=== PATIENT | female | born 1995 | race Caucasian/White ===

== ENCOUNTER 2019-12-16 22:55 | Inpatient (IN) ==
[2019-12-16 23:21] VITALS: BMI 31.3
[2019-12-16 23:26] LABS: AMNISURE ROM TEST THERE IS A RUPTURE (NO RUPTURE)
[2019-12-16 23:27] LABS: APPEARANCE,URINE CLOUDY (CLEAR); BILIRUBIN,URINE NEGATIVE (NEGATIVE); BLOOD/HEMOGLOBIN,URINE 5+ (NEGATIVE); COLOR,URINE YELLOW (YELLOW); GLUCOSE, URINE NEGATIVE (NEGATIVE); KETONES,URINE NEGATIVE (NEGATIVE); LEUKOCYTE ESTERASE ,URINE 1+ (NEGATIVE); NITRITES,URINE NEGATIVE (NEGATIVE); PH,URINE 6.5 (5.0 - 8.0); PROTEIN,URINE 2+ (NEGATIVE); UROBILINOGEN,URINE NORMAL (NORMAL)
[2019-12-16 23:29] LABS: BACTERIA,URINE 1+ /HPF (NEGATIVE); SQUAMOUS EPITHELIAL CELL,UR MODERATE /HPF (NEGATIVE)
[2019-12-16] MEDS ORDERED: D5 1/2 NS 1000 ML 1,000 ML IV ONE (23:31)
[2019-12-16] MEDS ORDERED: D5 1/2 NS 1000 ML 1,000 ML IV SCH (23:45)
[2019-12-16] MEDS ORDERED: LR 1000 ML IV 1,000 ML IV ONE (23:47)
[2019-12-16] MEDS ORDERED: FENTANYL INJ 100 mcg ONE (23:48)
[2019-12-16] MEDS ORDERED: PITOCIN ONE (23:48)
[2019-12-16] MEDS ORDERED: D5LR 1L W PITOCIN 10 UNITS/L 10 UNITS/1,000 ML BAG IV ONE (23:48)
[2019-12-16] MEDS ORDERED: NAROPIN EPIDURAL 0.2% + FENTANYL 90MCG 60 ML EPI ONE (23:49)
[2019-12-16] MEDS ORDERED: D5 1/2 NS 1L W PITOCIN 20 UNITS/L 20 UNITS/1,000 ML BAG IV ONE (23:49)
[2019-12-17] MEDS ORDERED: NUBAIN INJ 10 ONE (00:16)
[2019-12-17 00:25] LABS: BASOPHILS % (AUTO) 0.2 % (0.2-1.0); EOSINOPHILS % (AUTO) 0.5 % (0.9-2.9); HEMATOCRIT 35.2 % (36.0-47.0); HEMOGLOBIN 12.3 g/dL (12.0-16.0); LYMPHOCYTES # (AUTO) 2.7 X10^3/uL (1.3-2.9); LYMPHOCYTES % (AUTO) 29.5 % (21.0-51.0); MEAN CORPUSCULAR HEMOGLOBIN 31.4 pg (27.0-34.0); MEAN CORPUSCULAR HGB CONC 34.9 g/dL (33.0-35.0); MEAN PLATELET VOLUME 8.7 fL (7.4-11.0); MONOCYTES # (AUTO) 0.8 x10^3/uL (0.3-0.8); MONOCYTES % (AUTO) 8.2 % (0.0-13.0); NEUTROPHILS # (AUTO) 5.7 x10^3/uL (2.2-4.8); NEUTROPHILS % (AUTO) 61.6 % (42.0-75.0); PLATELET COUNT 214 X10^3/uL (150.0-450.0); RED BLOOD COUNT 3.91 X10^6/uL (3.5-5.4); RED CELL DISTRIBUTION WIDTH 13.3 % (11.6-16.5); WHITE BLOOD COUNT 9.2 X10^3/uL (3.6-10.0)
[2019-12-17] MEDS ORDERED: D5LR 1L W PITOCIN 10 UNITS/L 10 UNITS/1,000 ML BAG IV PRN (00:25)
[2019-12-17] MEDS ORDERED: REGLAN INJ 10 MG VIAL IVP PRN (00:25)
[2019-12-17] MEDS ORDERED: PITOCIN IVP ONE (00:25)
[2019-12-17] MEDS ORDERED: PHENERGAN INJ 25 MG IM PRN ×2 (00:25→05:34)
[2019-12-17] MEDS ORDERED: NUBAIN INJ 200 MG VIAL MULTIDOSE IVP PRN (00:25)
[2019-12-17 00:32] LABS: ALANINE AMINOTRANSFERASE 14 Units/L (12-78); ALBUMIN 2.9 g/dL (3.4-5.0); ALKALINE PHOSPHATASE 130 Units/L (46-116); ASPARTATE AMINO TRANSFERASE 14 Units/L (15-37); BLOOD UREA NITROGEN 10 mg/dL (7-18); CARBON DIOXIDE 27.3 mmol/L (21-32); CHLORIDE 103 mmol/L (98-107); COR CA(FOR HYPOALB) 9.9 mg/dL (8.5-10.1); CREATININE 0.68 mg/dL (0.55-1.02); SODIUM 136 mmol/L (136-145); TOTAL PROTEIN 6.8 g/dL (6.4-8.2); eGFR NON BLACK RACES > 60 (>60)
[2019-12-17] MEDS ORDERED: D5 1/2 NS 1000 ML 1,000 ML IV SCH (01:00)
[2019-12-17] MEDS ORDERED: EPHEDRINE SULFATE INJ ONE (01:19)
--- NOTE | 2019-12-17 05:33 | DR.OB ---
OB Quick Note - Assessment/Plan Assessment/Plan: Delivery Note MUSIC [employer]OM[employer]ER 12/17/19 at 5:06am Patient complete and pushing. Head delivered over intact perineum. No nuchal cord. Nose and mouth bulb suctioned. Body delivered over intact perineum but compound presentation with right hand at face noted. Cord clamped x 2 and cut. handed to attendants. Cord sent for gases. Placenta delivered spontaneously / intact / 3 vessel cord. No CVX tears noted. A small midline second degree tear noted and repaired with 0-vicryl in usual fashion. Viable female , VTX/OA, wt=7'12" and 7/8, stable to NBN. Mother stable to RR. CDV=141sh.
[2019-12-17] MEDS: D5 1/2 NS 1000 ML 1,000 ML with PITOCIN 20 UNITS IV SCH ×6 (06:10→21:48)
[2019-12-17] MEDS ORDERED: ADACEL or BOOSTRIX TDaP VACCINE IM ONE (06:50)
[2019-12-17] MEDS ORDERED: MILK OF MAGNESIA PO PRN (06:50)
[2019-12-17] MEDS ORDERED: AMBIEN PO PRN (06:50)
[2019-12-17] MEDS ORDERED: DERMOPLAST SPRAY TOP PRN (06:50)
[2019-12-17] MEDS: PRENATAL PLUS PO SCH (09:12)
[2019-12-17] MEDS: MOTRIN TAB 800 MG PO PRN ×2 (10:57→20:10)
[2019-12-18 05:18] LABS: HEMATOCRIT 28.6 % (36.0-47.0)
[2019-12-18] MEDS: D5 1/2 NS 1000 ML 1,000 ML with PITOCIN 20 UNITS IV SCH ×2 (05:36)
[2019-12-18] MEDS: PRENATAL PLUS PO SCH (08:28)
[2019-12-18 10:02] VITALS: BP 133/74
== END 2019-12-18 11:10 | disposition home or self-care (01) | DRG 807 ==
LOC: ER 22:55 → LD 12-17 00:13 → MED/SURG 12-17 06:17
PROVIDERS: ADMIT Specialist; ATTEND Specialist
DX: O36.0930 Maternal care for other rhesus isoimmunization, third trimester, not applicable or unspecified; Z3A.39 39 weeks gestation of pregnancy; O70.1 Second degree perineal laceration during delivery; Z37.0 Single live birth; Z23 Encounter for immunization
CPT/HCPCS: 36415; 59409; 80053; 81001; 84112; 85014; 85018; 85025; 86592; 86850; 86900; 86901; 87086; 90715; 96365; 99284; A4216; A4222; J2300; J2590; J3010; J3490; J7120; S0197; S5010